=== PATIENT | female | born 1950 | race Caucasian/White ===

== ENCOUNTER 2024-04-28 11:23 | Day surgery (SDC) | payer MEDICARE ==
[~2024-04-28] VITALS: Ht 162.6 cm; Wt 69.3 kg
[~2024-04-28 11:23] MED LIST: Balanced Salt Epinephrine Irrigation Solution 500 mL IR SCH; CITA20; HYDR1TAB94; Lidocaine HCl/Pf 1% 5 ML VIAL XX SCH; Moxifloxacin HCL 0.5 MG/0.1 ML 0.4MLSYR RIGHTEYE SCH; PHENYLEPHRINE\\TROPICAMIDE\\TETRACAINE OPHTHALMIC DILATING SOLN RIGHTEYE PRN; PROG100; Povidone-Iodine 450 DROP/30 ML Solution RIGHTEYE SCH
[2024-04-28] MEDS ORDERED: Midazolam HCl 1MG / ML 2ML Vial ONE (12:08)
[2024-04-28] MEDS ORDERED: HYDSUL200 PO (12:13)
[2024-04-28] MEDS ORDERED: LEUC5 PO (12:13)
[2024-04-28] MEDS ORDERED: ARIPIPRAZOLE2 M1 PO (12:14)
[2024-04-28] MEDS ORDERED: METHOTREXATE2.510 PO (12:14)
[2024-04-28] MEDS ORDERED: BUPROPION XL150 M1 PO (12:14)
[2024-04-28] MEDS ORDERED: PRED5 PO (12:15)
[2024-04-28] MEDS ORDERED: Isoniazid300 MG (12:15)
[2024-04-28] MEDS ORDERED: FentaNYL Citrate 50 MCG/ML 2 ML Injection ONE (12:29)
[2024-04-28] MEDS ORDERED: Tetracaine HCl 0.5% Opth Soln 15 ml RIGHTEYE ONE (12:38)
[2024-04-28 13:01] VITALS: BP 136/82
== END 2024-04-28 13:10 | disposition home or self-care (01) ==
LOC: ORSCSDS 11:23
PROVIDERS: Student in an Organized Health Care Education/Training Program
PROC: 08RJ3JZ Replacement of Right Lens with Synthetic Substitute, Percutaneous Approach (ICD-10-PCS; principal; 2024-04-28 13:00)
DX: H25.813 Combined forms of age-related cataract, bilateral (principal); H35.89 Other specified retinal disorders; H35.30 Unspecified macular degeneration; M06.9 Rheumatoid arthritis, unspecified; Z87.891 Personal history of nicotine dependence; Z79.899 Other long term (current) drug therapy
CPT/HCPCS: J2250; J3010; V2632

== ENCOUNTER 2024-06-02 09:05 | Day surgery (SDC) | payer MEDICARE ==
[~2024-06-02] VITALS: Ht 162.6 cm; Wt 72.1 kg
[~2024-06-02 09:05] MED LIST changes: +ARIPIPRAZOLE2 M1 PO; +BUPROPION XL150 M1 PO; +HYDSUL200 PO; +Isoniazid300 MG; +LEUC5 PO; +METHOTREXATE2.510 PO; +Moxifloxacin HCL 0.5 MG/0.1 ML 0.4MLSYR LEFTEYE SCH; -Moxifloxacin HCL 0.5 MG/0.1 ML 0.4MLSYR RIGHTEYE SCH; +PHENYLEPHRINE\\TROPICAMIDE\\TETRACAINE OPHTHALMIC DILATING SOLN LEFTEYE PRN; -PHENYLEPHRINE\\TROPICAMIDE\\TETRACAINE OPHTHALMIC DILATING SOLN RIGHTEYE PRN; +PRED5 PO; +Povidone-Iodine 450 DROP/30 ML Solution LEFTEYE SCH; +Povidone-Iodine 450 DROP/30 ML Solution ONE; -Povidone-Iodine 450 DROP/30 ML Solution RIGHTEYE SCH; +Tetracaine HCl/Pf 0.5% Opth Soln 4 ml ONE
[2024-06-02] MEDS ORDERED: FentaNYL Citrate 50 MCG/ML 2 ML Injection ONE (09:21)
[2024-06-02] MEDS ORDERED: Midazolam HCl 1MG / ML 2ML Vial ONE (09:22)
--- NOTE | 2024-06-02 09:37 | NUR ---
06/02/24 0937 Sonia Pascal CALL LIGHT WITHIN REACH. TETRACAINE IN LEFT EYE AT 0930 AND PLEDGETT IN AT 0931
--- NOTE | 2024-06-02 10:32 | NUR ---
06/02/24 1032 Erica Altamirano NOTED MULTIPLE SKIN TEARS TO BILATERAL UPPER EXTREMITES
[2024-06-02 10:58] VITALS: BP 131/86
--- NOTE | 2024-06-02 10:59 | NUR ---
06/02/24 2231 JUVENAL BUNDY PT CO NECK PAIN. SAID THAT SHE WOKE UP THAT WAY THIS MORNING. SHE CURRENTLY A SALON PAS ON. ALSO NOTED ARE TO HEALING ABRASIONS ON HER LEFT ARM. THE ARE PARRALEL, HER DOG JUMPED ON HER PER PT/
[2024-06-02] MEDS ORDERED: AcetaZOLAMIDE Sodium 500 MG Vial ONE ×2 (11:12)
== END 2024-06-02 11:10 | disposition home or self-care (01) ==
LOC: ORSCSDS 09:05
PROVIDERS: Student in an Organized Health Care Education/Training Program
PROC: 08RK3JZ Replacement of Left Lens with Synthetic Substitute, Percutaneous Approach (ICD-10-PCS; principal; 2024-06-02 10:30)
DX: H25.812 Combined forms of age-related cataract, left eye (principal); Z96.1 Presence of intraocular lens; M06.9 Rheumatoid arthritis, unspecified; F17.210 Nicotine dependence, cigarettes, uncomplicated; Z79.899 Other long term (current) drug therapy
CPT/HCPCS: J1120; J2250; J3010; V2632

== ENCOUNTER → 2024-07-23 | Outpatient (CLI) | payer MEDICARE ==
[~2024-07-23] MED LIST changes: -Balanced Salt Epinephrine Irrigation Solution 500 mL IR SCH; -Lidocaine HCl/Pf 1% 5 ML VIAL XX SCH; -Moxifloxacin HCL 0.5 MG/0.1 ML 0.4MLSYR LEFTEYE SCH; -PHENYLEPHRINE\\TROPICAMIDE\\TETRACAINE OPHTHALMIC DILATING SOLN LEFTEYE PRN; -Povidone-Iodine 450 DROP/30 ML Solution LEFTEYE SCH; -Povidone-Iodine 450 DROP/30 ML Solution ONE; -Tetracaine HCl/Pf 0.5% Opth Soln 4 ml ONE
[2024-07-23 10:29] LABS: BASOPHILS ABSOLUTE AUTO 0.08 K/mm3 (0.00-0.23); BASOPHILS PERCENT AUTO 1 % (0-2); EOSINOPHILS ABSOLUTE AUTO 0.17 K/mm3 (0.00-0.68); EOSINOPHILS PERCENT AUTO 2 % (0-6); Hematocrit 35.7 % (33.0-51.0); Hemoglobin 11.5 g/dL (11.5-16.0); IMMATURE GRAN ABSOLUTE AUTO 0.04 K/mm3 (0.00-0.10); IMMATURE GRAN PERCENT AUTO 0 % (0-1); LYMPHOCYTES ABSOLUTE AUTO 2.54 K/mm3 (0.84-5.20); LYMPHOCYTES PERCENT AUTO 26 % (21-46); MONOCYTES ABSOLUTE AUTO 0.56 K/mm3 (0.16-1.47); MONOCYTES PERCENT AUTO 6 % (4-13); Mean Corpuscular HGB 30.8 pg (26.0-34.0); Mean Corpuscular HGB Conc 32.2 g/dL (31.5-36.5); Mean Corpuscular Volume 96 fL (80-100); Mean Platelet Volume 9.4 fL (9.1-12.4); NEUTROPHILS ABSOLUTE AUTO 6.59 K/mm3 (1.96-9.15); NEUTROPHILS PERCENT AUTO 66 % (41-73); Platelet Count 275 K/mm3 (150-400); RDW Coefficient Variation 14.9 % (11.7-14.2); RDW Standard Deviation 51.4 fL (35.1-46.3); Red Blood Cell Count 3.73 M/mm3 (3.80-5.20); White Blood Cell Count 9.98 K/mm3 (4.00-11.30)
[2024-07-23 10:33] LABS: Bun/Creatinine Ratio 23.5 (12.0-20.0); Calcium, Blood 8.9 mg/dL (8.5-10.1); Creatinine, Blood 0.85 mg/dL (0.40-1.00)
== END ==
LOC: LAB 10:21 → LAB SHORT 10:21
PROVIDERS: Physician Assistant
DX: L03.213 Periorbital cellulitis (principal)
CPT/HCPCS: 80048; 85025

== ENCOUNTER 2024-10-07 07:24 | Emergency (ER) | payer MEDICARE ==
[~2024-10-07] VITALS: Ht 162.6 cm; Wt 68.0 kg
[2024-10-07] MEDS ORDERED: Aspirin 325 MG Tab PO ONE (08:00)
[2024-10-07] MEDS ORDERED: HYDROcodone 7.5-APAP 325 TAB PO ONE (08:00)
[2024-10-07 08:14] LABS: BASOPHILS PERCENT AUTO 1 % (0-2); EOSINOPHILS PERCENT AUTO 2 % (0-6); Hematocrit 36.4 % (33.0-51.0); Hemoglobin 11.9 g/dL (11.5-16.0); IMMATURE GRAN ABSOLUTE AUTO 0.03 K/mm3 (0.00-0.10); IMMATURE GRAN PERCENT AUTO 0 % (0-1); LYMPHOCYTES ABSOLUTE AUTO 2.65 K/mm3 (0.84-5.20); LYMPHOCYTES PERCENT AUTO 27 % (21-46); MONOCYTES ABSOLUTE AUTO 0.59 K/mm3 (0.16-1.47); MONOCYTES PERCENT AUTO 6 % (4-13); Mean Corpuscular HGB 31.2 pg (26.0-34.0); Mean Corpuscular HGB Conc 32.7 g/dL (31.5-36.5); Mean Corpuscular Volume 95 fL (80-100); Mean Platelet Volume 9.9 fL (9.1-12.4); NEUTROPHILS ABSOLUTE AUTO 6.21 K/mm3 (1.96-9.15); NEUTROPHILS PERCENT AUTO 64 % (41-73); Platelet Count 303 K/mm3 (150-400); RDW Coefficient Variation 14.2 % (11.7-14.2); RDW Standard Deviation 49.4 fL (35.1-46.3); Red Blood Cell Count 3.82 M/mm3 (3.80-5.20); White Blood Cell Count 9.78 K/mm3 (4.00-11.30)
[2024-10-07] MEDS ORDERED: Dexamethasone Sod Phos 10 MG/ML 1ML VIAL IV ONE (08:25)
[2024-10-07 08:45] LABS: Albumin, Blood 3.2 g/dL (3.4-5.0); Albumin/Globulin Ratio 0.8 (0.8-1.8); Bilirubin, Total 0.3 mg/dL (0.1-1.0); Bun/Creatinine Ratio 15.6 (12.0-20.0); Calcium, Blood 8.2 mg/dL (8.5-10.1); Creatinine, Blood 0.71 mg/dL (0.40-1.00); Globulin, Blood 3.8 g/dL (2.2-4.0); Potassium, Blood 3.5 mmol/L (3.5-5.5)
[2024-10-07 09:30] VITALS: BP 131/74
[2024-10-07] MEDS ORDERED: DOC250 PO (09:47)
[2024-10-07] MEDS ORDERED: OXYACE7.5T PO (09:47)
[2024-10-07] MEDS ORDERED: PRED20 PO (09:47)
== END 2024-10-07 10:00 | disposition home or self-care (01) ==
LOC: ER 07:24
PROVIDERS: Emergency Medicine
DX: B02.9 Zoster without complications (principal); M06.9 Rheumatoid arthritis, unspecified; F17.210 Nicotine dependence, cigarettes, uncomplicated; Z88.8 Allergy status to other drugs, medicaments and biological substances; Z79.899 Other long term (current) drug therapy
CPT/HCPCS: 70450; 70496; 70498; 80053; 85025; 93005; 93010; 96374-59; 99284-25; A9270; J1100; Q9967

== ENCOUNTER 2025-03-15 01:12 | Day surgery (SDC) | payer MEDICARE ==
[~2025-03-15] VITALS: Wt 65.5 kg
[~2025-03-15 01:12] MED LIST changes: +DOC250 PO; +OXYACE7.5T PO; +PRED20 PO
[2025-03-15] MEDS ORDERED: NS IV SCH (13:55)
[2025-03-15] MEDS ORDERED: INFLIXIMAB ABDA IV SCH (13:55)
[2025-03-15 14:16] VITALS: BP 141/77
[2025-03-15 14:47] VITALS: BP 136/74
[2025-03-15 15:20] VITALS: BP 131/75
[2025-03-15 15:37] VITALS: BP 125/67
[2025-03-15 15:53] VITALS: BP 131/75
[2025-03-15] MEDS ORDERED: ACET500 PO (16:00)
[2025-03-15] MEDS ORDERED: IBUP600 PO (16:00)
[2025-03-15 16:10] VITALS: BP 137/73
== END 2025-03-15 16:41 | disposition home or self-care (01) ==
LOC: ATC 01:12
DX: M06.00 Rheumatoid arthritis without rheumatoid factor, unspecified site (principal); L30.9 Dermatitis, unspecified; Z79.899 Other long term (current) drug therapy; Z87.891 Personal history of nicotine dependence; Z88.8 Allergy status to other drugs, medicaments and biological substances
CPT/HCPCS: 96413; 96415; J7050; Q5104

== ENCOUNTER 2025-03-30 00:58 | Day surgery (SDC) | payer MEDICARE ==
[~2025-03-30] VITALS: Wt 64.2 kg
[~2025-03-30 00:58] MED LIST changes: +ACET500 PO; +IBUP600 PO
[2025-03-30 14:03] VITALS: BP 134/74
[2025-03-30] MEDS ORDERED: INFLIXIMAB ABDA IV SCH (14:15)
[2025-03-30] MEDS ORDERED: NS IV SCH (14:15)
[2025-03-30 14:45] VITALS: BP 120/76
[2025-03-30 15:00] VITALS: BP 136/78
[2025-03-30 15:19] VITALS: BP 127/66
[2025-03-30 15:32] VITALS: BP 125/64
[2025-03-30 15:47] VITALS: BP 143/78
== END 2025-03-30 16:22 | disposition home or self-care (01) ==
LOC: ATC 00:58
DX: M06.00 Rheumatoid arthritis without rheumatoid factor, unspecified site (principal); Z88.8 Allergy status to other drugs, medicaments and biological substances; Z88.2 Allergy status to sulfonamides; Z87.891 Personal history of nicotine dependence
CPT/HCPCS: 96413; 96415; J7050; Q5104

== ENCOUNTER 2025-05-06 00:49 | Day surgery (SDC) | payer MEDICARE ==
[~2025-05-06] VITALS: Wt 66.2 kg
[2025-05-06 13:50] VITALS: BP 128/69
[2025-05-06] MEDS ORDERED: NS IV SCH (14:05)
[2025-05-06] MEDS ORDERED: INFLIXIMAB ABDA IV SCH (14:05)
== END 2025-05-06 16:26 | disposition home or self-care (01) ==
LOC: ATC 00:49
DX: M06.00 Rheumatoid arthritis without rheumatoid factor, unspecified site (principal); Z88.2 Allergy status to sulfonamides; Z88.8 Allergy status to other drugs, medicaments and biological substances
CPT/HCPCS: 96413; 96415; 99211; J7050; Q5104